=== PATIENT | male | born 1960 | race Caucasian/White ===

== ENCOUNTER 2017-08-30 10:40 | Day surgery (SDC) | payer BC ==
--- NOTE | 2017-08-23 10:51 | RADIOLOGY REPORT (SQ) ---
EXAM DESCRIPTION: CHEST PA/LATERAL COMPLETED DATE/TIME: 08/23/2017 10:42 am REASON FOR STUDY: PRE OP COMPARISON: None. EXAM PARAMETERS: NUMBER OF VIEWS: two views TECHNIQUE: Digital Frontal and Lateral radiographic views of the chest acquired. RADIATION DOSE: NA LIMITATIONS: none FINDINGS: LUNGS AND PLEURA: Bibasilar bandlike atelectasis. Remainder of the lungs are well inflate d and clear. No pleural effusion. No pneumothorax. MEDIASTINUM AND HILAR STRUCTURES: No masses or contour abnormalities. HEART AND VASCULAR STRUCTURES: Heart normal size. No evidence for failure. BONES: No acute findings. HARDWARE: None in the chest. OTHER: No other significant finding. IMPRESSION: Bibasilar bandlike atelectasis. TECHNICAL DOCUMENTATION: JOB ID: [id number]- All Rights Reserved Reading location - IP/workstation name: [email or web address]
--- NOTE | 2017-08-23 11:05 | EKG REPORT ---
SEVERITY:- BORDERLINE ECG - SINUS RHYTHM CONSIDER RVH OR POSTERIOR INFARCT : Confirmed by: Perfecto Joyce 23-Aug-2017 11:04:32
[2017-08-23 11:17] LABS: HEMATOCRIT 46.8 % (37.9-51.0); HEMOGLOBIN 16.4 g/dL (13.5-17.0); MEAN CORPUSCULAR HEMOGLOBIN 31.3 pg (27.0-33.4); MEAN CORPUSCULAR HGB CONC 35.1 g/dL (32.0-36.0); MEAN CORPUSCULAR VOLUME 89 fl (80-97); PLATELET COUNT 245 10^3/uL (150-450); RED BLOOD COUNT 5.24 10^6/uL (4.35-5.55); RED CELL DISTRIBUTION WIDTH 12.9 % (11.5-14.0); WHITE BLOOD COUNT 8.3 10^3/uL (4.0-10.5)
[2017-08-23 11:36] LABS: APPEARANCE,URINE CLEAR; BILIRUBIN,URINE NEGATIVE (NEGATIVE); COLOR,URINE YELLOW; GLUCOSE, URINE NEGATIVE (NEGATIVE); KETONES,URINE NEGATIVE (NEGATIVE); LEUKOCYTE ESTERASE,URINE NEGATIVE (NEGATIVE); NITRITE,URINE NEGATIVE (NEGATIVE); PROTEIN,URINE NEGATIVE (NEGATIVE); UROBILINOGEN,URINE NEGATIVE mg/dL (<2.0)
[2017-08-23 11:43] LABS: ANION GAP 11 (5-19); BLOOD UREA NITROGEN 17 mg/dL (7-20); CARBON DIOXIDE 32 mmol/L (22-30); CHLORIDE 101 mmol/L (98-107); GLUCOSE 116 mg/dL (75-110); POTASSIUM 3.7 mmol/L (3.6-5.0); SODIUM 143.5 mmol/L (137-145)
[~2017-08-30 10:40] MED LIST: BUPIVACAINE HCL 0.5 % INJ/PF 30 ML SDV ONE; CEFAZOLIN SODIUM 2 GM in DEXTROSE 5%-WATER 100 ML IV PRN; LACTATED RINGERS 1000 ML IV PRN; LIDOCAINE 0.5% INJ-PF (5 MG/ML) 50 ML SDV SUBCUT PRN
[2017-08-30] MEDS ORDERED: FENTANYL CITRATE INJ/PF 250 MCG/5 ML AMPULE ONE (12:30)
[2017-08-30] MEDS ORDERED: PROPOFOL INJ 200 MG/20 ML VIAL IV ONE (12:31)
[2017-08-30] MEDS ORDERED: MIDAZOLAM 2 MG/2 ML INJ ONE (12:31)
[2017-08-30] MEDS ORDERED: HYDROMORPHONE HCL INJ/PF 2 MG/ML AMPULE ONE (12:31)
[2017-08-30] MEDS ORDERED: MEPERIDINE HCL/PF INJ 25 MG/1 ML DISP.SYRIN IV PRN (13:24)
[2017-08-30] MEDS ORDERED: OXYCODONE-ACETAMINOPHEN 5-325 MG TABLET PO PRN ×2 (13:24)
[2017-08-30] MEDS ORDERED: MORPHINE SULFATE 10 MG/ML INJ IV PRN ×2 (13:24→13:53)
[2017-08-30] MEDS ORDERED: PROMETHAZINE HCL INJ 25 MG/1 ML VIAL IV PRN ×2 (13:24)
[2017-08-30] MEDS ORDERED: DIPHENHYDRAMINE HCL 50 MG/ML VIAL IV PRN (13:24)
[2017-08-30] MEDS ORDERED: FENTANYL CITRATE INJ/PF 100 MCG/2 ML AMPUL IV PRN ×3 (13:24)
[2017-08-30] MEDS ORDERED: ONDANSETRON HCL INJ/PF 4 MG/2 ML SDV IV PRN (13:53)
[2017-08-30] MEDS ORDERED: HYDROCODONE/ACETAMINOPHEN 5-325 MG TABLET PO PRN (13:53)
--- NOTE | 2017-08-30 13:53 | Operative Report ---
Operative Report DATE OF SURGERY: 08/30/17 PREOPERATIVE DIAGNOSIS: Recurrent ganglion cyst right small finger POSTOPERATIVE DIAGNOSIS: Same OPERATION: Excision recurrent ganglion cyst right small finger SURGEON: ELIAN BRIGHT ANESTHESIA: GA TISSUE REMOVED OR ALTERED: Cyst right small finger COMPLICATIONS: None ESTIMATED BLOOD LOSS: Minimal PROCEDURE: Indication for above procedure: 57-year-old male with history of a complex ganglion cyst of the right small finger requiring excision and bone grafting. Patient progressed successfully after his original operative treatment but then developed the cyst once again along his small finger. Upon follow-up with me we attempted conservative measures including aspiration and injection without resolution of patient's symptoms. At that point we discussed possible operative intervention. Risks and benefits were explained patient verbalized understanding consented for the procedure. Procedure In Detail: Patient was seen and evaluated in the preoperative holding area. The upper extremity was initialized and marked. Patient received 2g of Ancef IV for bacterial prophylaxis. Patient was taken back to the operative room where transferred to the operative table and placed under general anesthesia. Once they were adequately anesthetized a nonsterile tourniquet was placed on the upper extremity. A surgical team debriefing was performed ensuring all instrumentation was available, the surgical procedure was discussed with possible concerns reviewed. The upper extremity was prepped with chlorhexidine and alcohol and draped in a sterile fashion. A timeout was done identifying correct patient, procedure and extremity everyone in attendance agree with this and verbalized no concerns. The extremity was exsanguinated the tourniquet was inflated to 250 mmHg. A Zitelli rotational flap was constructed around the cyst along the dorsal ulnar aspect of the DIP joint. The skin was excised where the cyst continued to drain from. The extensor mechanism of the DIP joint was identified and freed dorsally and volarly to allow for retraction. The cyst root was excised as it was emanating from the DIP joint. Any surrounding cystic material was then removed piecemeal. A small bone spur along the DIP joint was then excised as well. Where the root was emanating from this area was coagulated with bipolar cautery and attempts to avoid recurrence. Any peripheral veins were coagulated with bipolar cautery. The wound was then copiously irrigated with normal saline. The Zitelli flap was then closed rotating the central portion distally to allow coverage at the area of the previous skin excision. This was closed with interrupted 4-0 nylon suture. Once closed was no tension or skin overlap. 10 cc of 0.5% Marcaine without epinephrine was injected for postoperative pain control. Wound was dressed Xeroform and a soft dressing. Tourniquet was deflated patient had good peripheral perfusion normal cap refill and skin turgor. Sponge counts, instrument counts, needle counts counts were correct. Patient was then awoken from anesthesia. Transferred from the operating room table to the operating room stretcher. There was no intraoperative complications patient tolerated procedure well stable to PACU. Postoperative plan: Patient will begin range of motion immediately at follow-up we will discuss pathology results and proceed with suture removal.
--- NOTE | 2017-08-30 13:54 | Discharge Summary ---
Discharge Summary (SDC) - Discharge Final Diagnosis: Excision recurrent ganglion cyst right small finger Date of Surgery: 08/30/17 Discharge Date: 08/30/17 Condition: Good Treatment or Instructions: Schedule Follow Up w/ Dr. Dominick Betts @ [facility] to be seen in 10-14 days or as scheduled [place]: [place]: [place]: May remove dressing on postop day #3, keep incision covered and dry. Ice and elevate May begin finger range of motion attempting to make full fist. Stool softener of choice when on pain medication. Prescriptions: Hydrocodone/Acetaminophen [[place] 5-325 mg Tablet] 1 tab PO Q6 PRN #25 tablet PRN Reason: Referrals: [facility]EVGENIY [facility] [Primary Care Provider] - Discharge Diet: As Tolerated Respiratory Treatments at Home: Deep Breathing/Coughing, Incentive Spirometer Discharge Activity: No Lifting Over 10 Pounds, No Lifting/Push/Pulling Report the Following to Your Physician Immediately: Fever over 101 Degrees, Unusual Bleeding, Redness, Swelling, Warmth, Increased Soreness
[2017-08-30 16:41] VITALS: BP 133/91
== END 2017-08-30 16:40 | disposition home or self-care (01) ==
LOC: OROUT 10:40
PROVIDERS: ATTEND Orthopaedic Surgery
DX: M67.441 Ganglion, right hand (principal); I10 Essential (primary) hypertension; Z79.899 Other long term (current) drug therapy
CPT/HCPCS: 93005; 36415 ×2; 84132; 85027; 80048; 81001; 88305 ×2; 71046; 93010; 26160; J2250; J3490; J0690; J1170; J2405; J2704; 1810; J3010